=== PATIENT | female | born 1995 | race Caucasian/White ===

== ENCOUNTER 2019-02-11 18:51 | Emergency (ER) | payer BC, OTHER ==
[2019-02-11 18:55] VITALS: TEMP 98.7
[2019-02-11] MEDS ORDERED: DEXAMETHASONE SOD PHOSPHATE 10 MG/ML 1 ML VIAL IV STA (20:13)
[2019-02-11] MEDS ORDERED: diphenhydrAMINE 50 MG/ML 1 ML VIAL IVP STA (20:13)
[2019-02-11] MEDS ORDERED: METOCLOPRAMIDE 5 MG/ML 2 ML VIAL IVP STA (20:13)
[2019-02-11] MEDS ORDERED: MAGNESIUM SULFATE-D5W PMX 1 GM in DEXTROSE/WATER 1 100ML.BAG IVPB ONE (20:13)
[2019-02-11] MEDS ORDERED: SODIUM CHLORIDE 0.9% 1,000 ML IV STA (20:13)
[2019-02-11 21:00] LABS: Basophils # (A) 0.1 k/uL (0-0.2); Basophils % (A) 1 %; Eosinophils # (A) 0.3 k/uL (0-0.7); Eosinophils % (A) 4 %; Lymphocytes # (A) 2.6 k/uL (1.0-4.8); Lymphocytes % (A) 30 %; MCHC 32.5 g/dL (31.0-37.0); MCV 89.2 fL (80.0-100.0); Mean Platelet Volume 7.4; Monocytes # (A) 0.4 k/uL (0-1.0); Monocytes % (A) 5 %; Neutrophils # (A) 5.1 k/uL (1.3-7.7); Neutrophils % (A) 60 %; Platelet Count 341 k/uL (150-450); RBC 4.49 m/uL (3.80-5.40); RDW 14.4 % (11.5-15.5); WBC 8.6 k/uL (3.8-10.6)
[2019-02-11 21:07] LABS: ALT 23 U/L (9-52); AST 22 U/L (14-36); African American GFR (CKD) >90 (>60 ml/min/1.73 sqM); Albumin 4.1 g/dL (3.5-5.0); Alkaline Phosphatase 48 U/L (38-126); Anion Gap 8 mmol/L; Blood Urea Nitrogen 13 mg/dL (7-17); Calcium 9.4 mg/dL (8.4-10.2); Carbon Dioxide 24 mmol/L (22-30); Chloride 108 mmol/L (98-107); Glucose 86 mg/dL (74-99); Potassium 4.3 mmol/L (3.5-5.1); Sodium 140 mmol/L (137-145); Total Bilirubin 0.3 mg/dL (0.2-1.3)
--- NOTE | 2019-02-11 21:21 | CT ---
EXAMINATION: CT brain wo con DATE AND TIME: 02/11/2019 9:04 PM CLINICAL INDICATION: PHH; Headache TECHNIQUE: Standard departmental protocol.; 1064.4 COMPARISON: None. FINDINGS: The calvarium is intact. There is no intracranial hemorrhage. There is no intracranial mass or mass effect. No definite new intra-axial or extra-axial attenuation defect. The paranasal sinuses, middle ear cavities, and mastoid sinus air cells are clear. The orbits are unremarkable. IMPRESSION: NO ACUTE PROCESS.
[2019-02-11] MEDS ORDERED: KETOROLAC 30 MG/ML 1 ML VIAL IVP STA (22:14)
--- NOTE | 2019-02-11 22:15 | ED ---
General Adult HPI - General Chief complaint: Headache Stated complaint: Headache Time Seen by Provider: 02/11/19 18:55 Source: patient Mode of arrival: ambulatory Limitations: no limitations - History of Present Illness Initial comments: Patient is a 23-year-old female who presents to the emergency department with reported headache for the past several months. Mother is at bedside and helps provide a history. She states that approximately 6 months ago the patient sustained a fall while going downstairs. She hit the middle of her for head on a cement floor. There was no loss of consciousness. The patient refused to seek care at that time. Mother then reports that the past 5 months the patient has had frequent headaches. She will have associated nausea, dizziness and photophobia. She will take [id number] medications which will improve her symptoms and the headache will eventually resolve on its own. She has never sought care. She currently has a headache that has been persisting for the past 3 days. She states that her over the counter medications are no longer working. She admits to associated photophobia and phonophobia. She denies any neck pain or stiffness. No fevers or chills. No recent travel. No new blunt head trauma. No recent chiropractic manipulations neck. There is no sudden onset or maximal intensity this headache. She denies any associated chest pain or shortness of breath. No abdominal pain. Does admit to nausea without vomiting. Denies any changes in her bowel or bladder habits. Denies the possibility of . No abnormal vaginal bleeding or discharge. There are no alleviating, precipitating or modifying factors - Related Data Home Medications Medication Instructions Recorded Confirmed Lisdexamfetamine Dimesylate 30 mg PO DAILY 02/11/19 02/11/19 [Vyvanse] Allergies Allergy/AdvReac Type Severity Reaction Status Date / Time No Known Allergies Allergy Verified 02/11/19 19:10 Review of Systems ROS Statement: Those systems with pertinent positive or pertinent negative responses have been documented in the HPI. ROS Other: All systems not noted in ROS Statement are negative. Past Medical History Past Medical History: Asthma History of Any Multi-Drug Resistant Organisms: None Reported Past Surgical History: Adenoidectomy, Tonsillectomy Past Psychological History: ADD/ADHD, Depression Smoking Status: Current every day smoker Past Alcohol Use History: None Reported Past Drug Use History: None Reported General Exam Limitations: no limitations General appearance: alert, in no apparent distress Head exam: Present: atraumatic, normocephalic, normal inspection, other (no external signs of trauma. No goodwin sign. No racoon eyes) Eye exam: Present: normal appearance, PERRL, EOMI, other (no hyphema. No papilledema). Absent: scleral icterus, conjunctival injection, periorbital swelling ENT exam: Present: normal exam, mucous membranes moist Neck exam: Present: normal inspection. Absent: tenderness, meningismus, lymphadenopathy Respiratory exam: Present: normal lung sounds bilaterally. Absent: respiratory distress, wheezes, rales, rhonchi, stridor Cardiovascular Exam: Present: regular rate, normal rhythm, normal heart sounds. Absent: systolic murmur, diastolic murmur, rubs, gallop, clicks GI/Abdominal exam: Present: soft, normal bowel sounds. Absent: distended, tenderness, guarding, rebound, rigid Extremities exam: Present: normal inspection, full ROM, normal capillary refill. Absent: tenderness, pedal edema, joint swelling, calf tenderness Back exam: Present: normal inspection Neurological exam: Present: alert, oriented X3, CN II-XII intact Psychiatric exam: Present: normal affect, normal mood Skin exam: Present: warm, dry, intact, normal color. Absent: rash Course Vital Signs 02/11/19 02/11/19 02/11/19 18:52 19:48 22:45 Temperature 98.7 F Pulse Rate 108 H 84 67 Respiratory 20 18 16 Rate Blood Pressure 125/72 109/59 125/69 O2 Sat by Pulse 99 99 96 Oximetry Medical Decision Making - Medical Decision Making Upon arrival the patient is placed in room 17. She is hooked up to continuous pulse ox and cardiac monitoring. Vitals are obtained and the patient is mildly tachycardic. A thorough history and physical exam was performed. The patient does not demonstrate any focal neurologic deficits. Because the patient started having migraines after trauma I did recommend CT the patient's brain for which she did agree to. Laboratory studies were also be conducted. Upon review of the results I did discuss them with the patient. Laboratory studies are essentially unremarkable. CT of the brain does not demonstrate any acute findings. The patient was given a migraine cocktail which consisted of 25 mg of Benadryl, 10 mg of Reglan, 1 g of magnesium, and 10 mg of Decadron. After the CT returned and was negative she also received 15 mg of Toradol. She is reevaluated and states that her headache has improved from a 10 out of 10 pain to a 2 out of 10 pain. At this time the patient will be discharged home. She is given follow-up information for Dr. Taylor's office. If the patient has any new or worsening symptoms she should return to the emergency room. The patient was in agreement with the treatment plan and she was discharged in stable condition - Lab Data Result diagrams: 02/11/19 20:39 02/11/19 20:39 Lab Results 02/11/19 02/11/19 02/11/19 Range/Units 20:39 20:39 20:39 WBC 8.6 (3.8-10.6) k/uL RBC 4.49 (3.80-5.40) m/uL Hgb 13.0 (11.4-16.0) gm/dL Hct 40.0 (34.0-46.0) % MCV 89.2 (80.0-100.0) fL MCH 29.0 (25.0-35.0) pg MCHC 32.5 (31.0-37.0) g/dL RDW 14.4 (11.5-15.5) % Plt Count 341 (150-450) k/uL Neutrophils % 60 % Lymphocytes % 30 % Monocytes % 5 % Eosinophils % 4 % Basophils % 1 % Neutrophils # 5.1 (1.3-7.7) k/uL Lymphocytes # 2.6 (1.0-4.8) k/uL Monocytes # 0.4 (0-1.0) k/uL Eosinophils # 0.3 (0-0.7) k/uL Basophils # 0.1 (0-0.2) k/uL Sodium 140 (137-145) mmol/L Potassium 4.3 (3.5-5.1) mmol/L Chloride 108 H (98-107) mmol/L Carbon Dioxide 24 (22-30) mmol/L Anion Gap 8 mmol/L BUN 13 (7-17) mg/dL Creatinine 0.75 (0.52-1.04) mg/dL Est GFR (CKD-EPI)AfAm >90 (>60 ml/min/1.73 sqM) Est GFR (CKD-EPI)NonAf >90 (>60 ml/min/1.73 sqM) Glucose 86 (74-99) mg/dL Calcium 9.4 (8.4-10.2) mg/dL Total Bilirubin 0.3 (0.2-1.3) mg/dL AST 22 (14-36) U/L ALT 23 (9-52) U/L Alkaline Phosphatase 48 (38-126) U/L Total Protein 7.0 (6.3-8.2) g/dL Albumin 4.1 (3.5-5.0) g/dL Urine HCG, Qual Not Detected (Not Detectd) Disposition Clinical Impression: Headache Disposition: HOME SELF-CARE Condition: Stable Instructions (If sedation given, give patient instructions): Acute Headache (ED) Additional Instructions: Please follow-up with your primary care doctor in 2-4 days. Return to the emergency room for any new or worsening symptoms Is patient prescribed a controlled substance at d/c from ED?: No Referrals: Jr Henson DO [Primary Care Provider] - 1-2 days Ruba Taylor MD [STAFF PHYSICIAN] - 1-2 days Time of Disposition: 22:15
[2019-02-11 22:47] VITALS: BP 125/69; PULSE 67; RESP 16
== END 2019-02-11 22:45 | disposition home or self-care (01) ==
LOC: EC 18:51
DX: R51 Headache (principal); R11.0 Nausea; H53.149 Visual discomfort, unspecified; R00.1 Bradycardia, unspecified; F90.9 Attention-deficit hyperactivity disorder, unspecified type; F17.200 Nicotine dependence, unspecified, uncomplicated; Z87.820 Personal history of traumatic brain injury; Z79.899 Other long term (current) drug therapy
CPT/HCPCS: 36415; 80053; 85025; 81025; 70450; 99284; 96365; 96375 ×4; J1200; J1100; J2765; J1885; J3475

== ENCOUNTER → 2021-01-10 | Outpatient (CLI) | payer OTHER ==
--- NOTE | 2021-01-10 15:45 | XR ---
EXAM TYPE: LUMBAR SPINE X RAY SERIES COMPARISON: NONE HISTORY: Pain TECHNIQUE: 3 views are submitted. FINDINGS: Alignment is anatomic. The pedicles are intact. The transverse processes are intact. There is no s pondylolysis or spondylolisthesis. IMPRESSION: 1. No acute process.
== END | disposition home or self-care (01) ==
LOC: RADXRMAIN 15:01
PROVIDERS: ATTEND Nurse Practitioner Family
DX: M54.5 Low back pain (principal); X50.9XXA Other and unspecified overexertion or strenuous movements or postures, initial encounter
CPT/HCPCS: 72100